=== PATIENT | female | born 1990 | race Caucasian/White ===

== ENCOUNTER 2016-12-18 11:44 | Observation (INO) | payer BC ==
--- NOTE | 2016-12-18 12:15 | ED ---
Chest Pain HPI - General Source: patient, EMS, RN notes reviewed Mode of arrival: EMS Limitations: no limitations <Yves Kaur - Last Filed: 12/18/16 14:45> <Juan Rodriguez - Last Filed: 12/18/16 15:02> - General Chief Complaint: Chest Pain Stated Complaint: SOB Time Seen by Provider: 12/18/16 11:47 - History of Present Illness Initial Comments: 26-year-old female presents emergency Department chief complaint chest pain. Patient states she was sitting at home which she has sudden onset of pain that radiates from her epigastric upper chest. Patient states it then felt like some stabbed a to her chest to her back. She states that she has some shortness breath even with talking this time. Patient states she has a history of exercise-induced asthma. Patient denies any fever, chills. She states she has some cold like symptoms no week or so ago but states she has not this time. Patient states she has no history of hyperlipidemia, hypertension, diabetes. She is a nonsmoker. No prior history of smoking. Denies any leg pain no history of DVT or PE. Patient denies any control. Patient was completely diaphoretic upon EMS arrived. (Yves Kaur) - Related Data Home Medications Medication Instructions Recorded Confirmed No Known Home Medications [No 12/18/16 12/18/16 Known Home Medications] Allergies Allergy/AdvReac Type Severity Reaction Status Date / Time aspirin Allergy Anaphylaxis Verified 12/18/16 12:57 Review of Systems ROS Other: All systems not noted in ROS Statement are negative. <Yves Kaur - Last Filed: 12/18/16 14:45> ROS Other: All systems not noted in ROS Statement are negative. <Juan Rodriguez - Last Filed: 12/18/16 15:02> ROS Statement: Those systems with pertinent positive or pertinent negative responses have been documented in the HPI. Past Medical History Past Medical History: Asthma Additional Past Medical History / Comment(s): RUQ pain History of Any Multi-Drug Resistant Organisms: None Reported Past Surgical History: Adenoidectomy, Tonsillectomy Past Anesthesia/Blood Transfusion Reactions: No Reported Reaction Past Psychological History: No Psychological Hx Reported Smoking Status: Never smoker Past Alcohol Use History: Occasional Past Drug Use History: None Reported <Yves Kaur - Last Filed: 12/18/16 14:45> General Exam Limitations: no limitations General appearance: alert, in no apparent distress Head exam: Present: atraumatic, normocephalic, normal inspection Neck exam: Present: normal inspection, full ROM. Absent: tenderness, meningismus, lymphadenopathy Respiratory exam: Present: normal lung sounds bilaterally. Absent: respiratory distress, wheezes, rales, rhonchi, stridor Cardiovascular Exam: Present: regular rate, normal rhythm, normal heart sounds. Absent: systolic murmur, diastolic murmur, rubs, gallop, clicks GI/Abdominal exam: Present: soft, tenderness (Mild left upper quadrant tenderness), normal bowel sounds. Absent: distended, guarding, rebound, rigid Back exam: Absent: CVA tenderness (R), CVA tenderness (L) Skin exam: Present: warm, dry, intact, normal color. Absent: rash <Yves Kaur - Last Filed: 12/18/16 14:45> Course <Yves Kaur - Last Filed: 12/18/16 14:45> <Juan Rodriguez - Last Filed: 12/18/16 15:02> Vital Signs 12/18/16 12/18/16 11:49 13:42 Temperature 97.4 F L 97.8 F Pulse Rate 74 83 Respiratory 18 18 Rate Blood Pressure 114/70 111/68 O2 Sat by Pulse 100 97 Oximetry - Reevaluation(s) Reevaluation #1: 12/18/16 15:01 Patient reexamined and resting comfortably in bed. Patient and family updated on results and plan. Patient case was discussed in detail with Dr. Macias, who will admit covering for Dr. Thomas. (Juan Rodriguez) Chest Pain [facility] <Yves Kaur - Last Filed: 12/18/16 14:45> <Juan Rodriguez - Last Filed: 12/18/16 15:02> - MDM 26-year-old female presented for chest pain. Patient's lab work was normal it' s. This may be more GI related though she had some concerning symptoms of near syncope, severe diaphoretic episode with chest pain. Patient will be Inpatient for cardiology evaluation. (Yves Kaur) Disposition <Yves Kaur - Last Filed: 12/18/16 14:45> <Juan Rodriguez - Last Filed: 12/18/16 15:02> Clinical Impression: Chest pain, Near syncope Disposition: ADMITTED IP TO THIS HOSP Condition: Stable Addendum entered and electronically signed by Yves Kaur PAC 12/18/16 14:47 : EKG performed at 12:13 normal sinus rhythm rate of 73, TN 150, cushion 100, QT/ QTC 394/434
[2016-12-18 12:39] LABS: Basophils # (A) 0.2 k/uL (0-0.2); Basophils % (A) 2 %; CH 30.9; CHCM 34.6; Eosinophils # (A) 0.3 k/uL (0-0.7); Eosinophils % (A) 4 %; HCT 39.2 % (34.0-46.0); HDW 2.42; HGB 12.7 gm/dL (11.4-16.0); Luc # (Auto) 0.06; Luc % (Auto) 1; Lymphocytes # (A) 0.8 k/uL (1.0-4.8); Lymphocytes % (A) 10 %; MCH 29.1 pg (25.0-35.0); MCHC 32.4 g/dL (31.0-37.0); MCV 89.6 fL (80.0-100.0); Mean Platelet Volume 7.2; Monocytes # (A) 0.3 k/uL (0-1.0); Monocytes % (A) 4 %; Neutrophils # (A) 6.1 k/uL (1.3-7.7); Neutrophils % (A) 79 %; RBC 4.38 m/uL (3.80-5.40); RDW 11.4 % (11.5-15.5); WBC 7.7 k/uL (3.8-10.6)
[2016-12-18 12:48] LABS: Anion Gap 10 mmol/L; Blood Urea Nitrogen 8 mg/dL (7-17); Calcium 8.6 mg/dL (8.4-10.2); Carbon Dioxide 26 mmol/L (22-30); Chloride 109 mmol/L (98-107); Glucose 76 mg/dL (74-99); Non-African American GFR(MDRD) >60 (>60 ml/min/1.73 sqM); Potassium 4.1 mmol/L (3.5-5.1); Sodium 145 mmol/L (137-145)
[2016-12-18 12:52] LABS: INR 1.1 (<1.1); Partial Thromboplastin Time 23.6 sec (22.0-30.0)
--- NOTE | 2016-12-18 12:57 | XR ---
EXAMINATION TYPE: XR chest 2V DATE OF EXAM: 12/18/2016 12:46 PM COMPARISON: NONE HISTORY: Chest pain TECHNIQUE: Frontal and lateral views of the chest are obtained. FINDINGS: Heart and mediastinum are normal. Lungs are clear. Diaphragm is normal. Bony thorax is int act. There are chest leads. IMPRESSION: Normal chest
[2016-12-18] MEDS ORDERED: ONDANSETRON 4 MG/2 ML VIAL IVP PRN (14:46)
[2016-12-18] MEDS ORDERED: NALOXONE 0.4 MG/ML 1 ML VIAL IV PRN (14:46)
[2016-12-18] MEDS ORDERED: ACETAMINOPHEN TAB 325 MG TAB PO PRN (14:46)
[2016-12-18] MEDS: IBUPROFEN 400 MG TAB PO PRN (14:59)
[2016-12-18] MEDS ORDERED: RX INFO: IV CONTRAST WAS GIVEN 1 EACH MISC MISCELLANE PRN (15:02)
--- NOTE | 2016-12-18 15:55 | CT ---
EXAMINATION TYPE: CT angio thoracic/abd aorta DATE OF EXAM: 12/18/2016 3:42 PM COMPARISON: NONE HISTORY: Mid Abdominal and Upper back pain CT DLP: 805.4 mGycm Automated exposure control for dose reduction was used. TECHNIQUE: Performed with IV Contrast, patient injected with 100 mL of Omnipaque 350. . Multiple axial sections were obtained from the thoracic inlet to the floor of the pelvis with intra venous contrast. There are 3-D post processed images. FINDINGS: The lungs are clear of infiltrate. There is no mediastinal adenopathy. There is no sign of aortic ane urysm or dissection. I see no filling defects in the pulmonary arteries. Liver spleen pancreas appear normal. Bile ducts are not dilated. There is no adrenal mass. Kidneys sh ow satisfactory contrast opacification. There is no retroperitoneal adenopathy. There is no ascites. The celiac artery and superior mesenteric artery appear normal. Iliac arteries are widely patent. The re is no evidence of stenosis. There is no evidence of an aneurysm. The renal arteries are widely pat ent. I see no intestinal wall thickening. There are no dilated loops. IMPRESSION: NEGATIVE CT ANGIOGRAM OF THE CHEST ABDOMEN AND PELVIS.
--- NOTE | 2016-12-18 17:47 | P.HPIM ---
History of Present Illness H&P Date: 12/18/16 26-year-old female with no significant past medical history comes in to the hospital via EMS as patient noted to have sudden onset abdominal pain left lower quadrant in location started radiating up to her chest. Patient stated the initial abdominal pain and lasted for 20 minutes the was severe sharp not associated with nausea vomiting or any diarrhea. Patient then noted to have diaphoresis and then pain that was radiated to the upper chest. That lasted for 10 more minutes. Patient apparently does have a history of asthma but has been well controlled and has not even required to use any rescue inhalers in the last few years. Patient states her last menstrual period was over 6 weeks ago. Denies having any severe pain during menstrual cycles. At the time of my examination. Patient states to be feeling better was walking around the unit without much difficulty. EKG did not reveal ST-T wave changes. Initial troponin was negative. A CT of the thorax was done to rule out dissection which was negative. Review of Systems All systems: negative (Noted in HPI) Past Medical History Past Medical History: Asthma Additional Past Medical History / Comment(s): RUQ pain History of Any Multi-Drug Resistant Organisms: None Reported Past Surgical History: Adenoidectomy, Cholecystectomy, Tonsillectomy Past Anesthesia/Blood Transfusion Reactions: No Reported Reaction Past Psychological History: No Psychological Hx Reported Smoking Status: Never smoker Past Alcohol Use History: Occasional Past Drug Use History: None Reported Medications and Allergies Home Medications Medication Instructions Recorded Confirmed Type No Known Home Medications [No 12/18/16 12/18/16 History Known Home Medications] Allergies Allergy/AdvReac Type Severity Reaction Status Date / Time aspirin Allergy Anaphylaxis Verified 12/18/16 12:57 Physical Exam Vitals: Vital Signs Temp Pulse Pulse Resp BP BP Pulse Ox 12/18/16 16:00 87 16 12/18/16 15:59 87 16 12/18/16 15:48 97.8 F 87 16 104/72 100 12/18/16 15:22 97.9 F 78 18 115/69 99 Intake and Output 12/18/16 12/18/16 12/18/16 06:59 14:59 22:59 Other: Voiding Method Toilet # Voids 1 Weight 65 kg Patient Weight 12/19/16 06:59 Weight 65 kg Physical exam Gen. appearance oriented 3 in no distress Neck is supple no JVD Lungs good air entry clear to auscultation no rhonchi or wheezing Heart S1-S2 heard regular rate and rhythm no murmurs appreciated Abdomen some tenderness to palpation of the left lower quadrant. Neurologically cranial nerves II-12 grossly intact no focal motor or sensory deficits noted Skin no abnormalities appreciated Results CBC & Chem 7: 12/18/16 12:18 12/18/16 12:18 Thrombosis Risk Factor Assmnt - Choose All That Apply Any of the Below Risk Factors Present?: No Other Risk Factors: No Other congenital or acquired thrombophilia - If yes, enter type in comment: No Thrombosis Risk Factor Assessment Level: Very Low Risk Assessment and Plan Plan: #1 atypical chest pain #2 presyncope appears to be slightly vasovagal in nature #3 abdominal pain nonspecific, wash question of underlying cyst rupture. #4 mild intermittent asthma Plan Continue ongoing care. Repeat another troponin. We'll have a cardiology eval. We'll obtain a ultrasound of the abdomen to rule out any ovarian cyst rupture. This could have initiated the pain which thereafter cause the vagal symptoms.
[2016-12-19] MEDS ORDERED: PANTOPRAZOLE 40 MG/10 ML VIAL IV SCH (09:00)
[2016-12-19 09:02] VITALS: RESP 16
--- NOTE | 2016-12-19 09:09 | US ---
EXAMINATION TYPE: US pelvic complete DATE OF EXAM: 12/19/2016 8:49 AM COMPARISON: NONE CLINICAL HISTORY: possible cysts. Pelvic pain yesterday that extended to chest and caused SOB, sympto ms gone today TECHNIQUE: TA Date of LMP: 11/21/2016 EXAM MEASUREMENTS: Uterus: 7.4 x 5.0 x 4.6cm Endometrial Stripe: 0.5cm Right Ovary: 4.0 x 2.7 x 2.1cm Left Ovary: 3.2 x 3.1 x 1.6cm TECHNOLOGIST IMPRESSION: 1. Uterus: Anteverted wnl 2. Endometrium: wnl 3. Right Ovary: wnl 4. Left Ovary: wnl 5. Bilateral Adnexa: wnl 6. Posterior cul-de-sac: wnl IMPRESSION: Unremarkable pelvic ultrasound.
[2016-12-19] MEDS: IBUPROFEN 400 MG TAB PO PRN (10:14)
--- NOTE | 2016-12-19 10:59 | CONS ---
DATE OF CONSULTATION: CHIEF COMPLAINT: Chest pain. 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 She underwent work-up including a CT chest of the thoracic aorta that was negative and also had a pelvic ultrasound. Pelvic ultrasound was unremarkable. Past medical history is negative for hypertension, diabetes, dyslipidemia. MEDICATIONS: None. ALLERGIES: ALLERGIC TO ASPIRIN. FAMILY HISTORY: Negative for premature coronary artery disease. SOCIAL HISTORY: Negative for smoking, ETOH abuse or drug abuse. REVIEW OF SYSTEMS: HEENT: Unremarkable. CARDIAC: As described above. RESPIRATORY: Negative. GI: Negative. GENITOURINARY: Negative. Allergy/immunology: Negative. MUSCULOSKELETAL: Significant for arthritis. PSYCHOSOCIAL: Negative. ENDOCRINE: Negative. Dermatology: Negative. CONSTITUTIONAL: Negative. The rest of the system review is not relevant. On exam, comfortable at rest. Vital signs are stable. There is no jugular venous distention. Carotid upstroke is normal. There is no bruit. Chest exam reveals good air entry bilaterally. Heart exam reveals first and second heart sounds. No gallop. ABDOMEN: Soft, nontender. Exam of extremities did not reveal edema. Peripheral pulses are felt. EKG does not reveal ischemic changes. Two sets of cardiac enzymes are negative. The CT scan is negative. Creatinine is 0.78. Hemoglobin is 12.7. ASSESSMENT: Chest pain, myocardial infarction ruled out. PLAN: Patient's symptoms are atypical and unclear etiology. Work-up so far has been negative and she is stable to be discharged home. I will obtain a 2-D echocardiogram on her and her work-up can be pursued as outpatient.
[2016-12-19 12:36] VITALS: BP 109/63; PULSE 81; TEMP 98.3
--- NOTE | 2016-12-19 13:30 | ECHOF ---
Referral Reason:heart function MEASUREMENTS -------- HEIGHT: 157.5 cm WEIGHT: 64.9 kg BP: 98/57 IVSd: 0.8 cm (0.6 - 1.1) LVIDd: 4.2 cm (3.9 - 5.3) LVPWd: 0.8 cm (0.6 - 1.1) LVIDs: 2.8 cm LA Diam: 3.0 cm (2.7 - 3.8) RVIDd: 2.9 cm (< 3.3) Ao Diam: 2.7 cm (2.0 - 3.7) AV Cusp: 2.1 cm (1.5 - 2.6) EPSS: 0.5 cm MV E Jason: 0.88 m/s MV DecT: 228 ms MV A Jason: 0.70 m/s MV E/A Ratio: 1.25 MV EF SLOPE: 74.82 mm/s (70 - 150) MV EXCURSION: 9.63 mm (> 18.000) FINDINGS -------- Sinus rhythm. This was a technically good study. The left ventricular size is normal. Left ventricular wall thickness is normal. Overall left ventricular systolic function is normal with, an EF between 60 - 65 %. The right ventricle is normal in size and function. The left atrium is normal in size. The right atrium is normal in size. The aortic valve is trileaflet and appears structurally normal. Normal appearing mitral valve. No mitral regurgitation. Trace tricuspid regurgitation present. Trace/mild (physiologic) pulmonic regurgitation. The aortic root size is normal. Normal inferior vena cava with normal inspiratory collapse consistent with estimated right atrial pressure of 5 mmHg. There is no pericardial effusion. CONCLUSIONS -------- 1. Sinus rhythm. 2. Normal appearing mitral valve. 3. Trace tricuspid regurgitation present. 4. Trace/mild (physiologic) pulmonic regurgitation. 5. The aortic root size is normal. 6. There is no pericardial effusion. 7. This was a technically good study. 8. The left ventricular size is normal. 9. Left ventricular wall thickness is normal. 10. Overall left ventricular systolic function is normal with, an EF between 60 - 65 %. 11. The right ventricle is normal in size and function. 12. The left atrium is normal in size. 13. The right atrium is normal in size. 14. The aortic valve is trileaflet and appears structurally normal. SEWER CONNECTOR: Brenda Lemon RDCS
--- NOTE | 2016-12-19 19:18 | P.DS ---
Providers Date of admission: 12/18/16 14:46 Attending physician: Inga Mix Primary care physician: Kalpesh Thomas [facility] Course: 26-year-old female with no significant past medical history comes in to the hospital via EMS as patient noted to have sudden onset abdominal pain left lower quadrant in location started radiating up to her chest. Patient stated the initial abdominal pain and lasted for 20 minutes the was severe sharp not associated with nausea vomiting or any diarrhea. Patient then noted to have diaphoresis and then pain that was radiated to the upper chest. That lasted for 10 more minutes. Patient apparently does have a history of asthma but has been well controlled and has not even required to use any rescue inhalers in the last few years. Patient states her last menstrual period was over 6 weeks ago. Denies having any severe pain during menstrual cycles. At the time of my examination. Patient states to be feeling better was walking around the unit without much difficulty. EKG did not reveal ST-T wave changes. Initial troponin was negative. A CT of the thorax was done to rule out dissection which was negative. Physical exam Gen. appearance oriented 3 in no distress Neck is supple no JVD Lungs good air entry clear to auscultation no rhonchi or wheezing Heart S1-S2 heard regular rate and rhythm no murmurs appreciated Abdomen some tenderness to palpation of the left lower quadrant. Neurologically cranial nerves II-12 grossly intact no focal motor or sensory deficits noted Skin no abnormalities appreciated R Plan: #1 atypical chest pain #2 presyncope appears to have vasovagal features due to abdominal pain. #3 abdominal pain nonspecific, #4 mild intermittent asthma ACS was ruled out Pelvic ultrasound negative Echo was done, results to be reviewed with Dr Lane on Follow up Symptom free Patient Condition at Discharge: Stable Plan - Discharge Summary Discharge Medication List No Known Home Medications [No Known Home Medications] 12/18/16 [History] Follow up Appointment(s)/Referral(s): Kalpesh Thomas DO [Primary Care Provider] - 1-[address] MD [STAFF PHYSICIAN] - 1 Week Patient Instructions/Handouts: Noncardiac Chest Pain (DC) Discharge Disposition: HOME SELF-CARE
== END 2016-12-19 14:22 | disposition home or self-care (01) ==
LOC: EC 11:44 → 3OBS 14:46
PROVIDERS: ADMIT Internal Medicine; ATTEND Internal Medicine
DX: R07.89 Other chest pain (principal); R55 Syncope and collapse; R61 Generalized hyperhidrosis; J45.20 Mild intermittent asthma, uncomplicated; R10.32 Left lower quadrant pain; R10.13 Epigastric pain; Z88.6 Allergy status to analgesic agent
CPT/HCPCS: 99285; 36415; 93005; 93306; 85379; 80048; 84484 ×2; 85025; 85610; 85730; 71020; 76856; 75635; 71275; G0378 ×2; Q9967; C9113

== ENCOUNTER → 2017-01-13 | Outpatient (CLI) | payer BC ==
--- NOTE | 2017-01-13 21:47 | MR ---
EXAMINATION TYPE: MR knee LT wo con DATE OF EXAM: 01/13/2017 5:29 PM COMPARISON: NONE HISTORY: Left knee pain TECHNIQUE: Multiplanar, multisequence imaging of the left knee is performed without IV contrast. FINDINGS: MEDIAL MENISCUS: Findings are compatible with a posterior horn medial meniscal tear LATERAL MENISCUS: Anterior and posterior horns are intact without tear. CRUCIATE LIGAMENTS: The anterior and posterior cruciate ligaments are intact and unremarkable. COLLATERAL LIGAMENTS: The medial collateral ligament and lateral collateral ligament complex are inta ct and unremarkable. EXTENSOR MECHANISM: Visualized quadriceps and patellar tendons are intact. EFFUSION: No significant suprapatellar joint effusion. POPLITEAL CYST: No popliteal/livingston cyst. TRICOMPARTMENT SPACES: Joint spaces are preserved. There is loss of the cartilage of the medial moore lar facet. Patellofemoral joint space is maintained. BONE MARROW SIGNAL: Nonspecific marrow changes are seen involving the proximal epiphysis of the tibia . Suggestion of a small intraosseous bone lesion with no corresponding plain film x-ray abnormality. Adjacent marrow edema is noted. Finding could be correlated with bone scan OTHER: No additional significant abnormality is appreciated. IMPRESSION: 1. 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 Findings are suspicious for subtle tear posterior horn medial meniscus 3. Intraosseous marrow edema and probable lesion. Outside x-ray submitted demonstrate no correspondin g defect. Finding likely benign but could be correlated with bone scan to assess activity.
== END | disposition home or self-care (01) ==
LOC: RADMRIMAIN 16:34
PROVIDERS: ATTEND Orthopaedic Surgery
DX: M22.42 Chondromalacia patellae, left knee (principal)

== ENCOUNTER 2025-04-15 10:11 | Outpatient (CLI) | payer BC ==
[2025-04-15] MEDS ORDERED: LACTATED RINGERS 1,000 ML IV SCH (10:45)
[2025-04-15 10:55] LABS: Glucose,Whole Blood 91 mg/dL (70-110)
[2025-04-15] MEDS: LACTATED RINGERS 1,000 ML IV ONE (10:55)
[2025-04-15 11:13] LABS: Basophils # (A) 0.03 10*3/uL (0.00-0.10); Basophils % (A) 0.3 %; Eosinophils # (A) 0.03 10*3/uL (0.04-0.35); Eosinophils % (A) 0.3 %; HCT 37.3 % (37.2-46.3); HGB 12.5 g/dL (12.0-15.0); Lymphocytes # (A) 0.97 10*3/uL (0.90-5.00); Lymphocytes % (A) 8.4 %; MCH 31.4 pg (27.0-32.0); MCHC 33.5 g/dL (32.0-37.0); MCV 93.7 fL (80.0-97.0); Mean Platelet Volume 9.4 fL (9.5-12.2); Monocytes # (A) 0.47 10*3/uL (0.20-1.00); Monocytes % (A) 4.1 %; Neutrophils % (A) 86.1 %; Platelet Count 227 10*3/uL (140-440); RBC 3.98 10*6/uL (4.10-5.20); RDW 12.1 % (11.5-14.5); WBC 11.49 10*3/uL (4.50-10.00)
[2025-04-15 11:28] LABS: ALT 19 U/L (4-34); AST 20 U/L (14-36); African American GFR (CKD) >90 (>60 ml/min/1.73 sqM); Alkaline Phosphatase 80 U/L (38-126); Anion Gap 10 mmol/L; Appearance,Urine Cloudy (Clear); Bacteria,Urine Rare /hpf; Bilirubin,Urine Negative (Negative); Blood Urea Nitrogen 11 mg/dL (7-17); Blood,Urine Negative (Negative); Calcium 9.1 mg/dL (8.4-10.2); Carbon Dioxide 19 mmol/L (22-30); Chloride 108 mmol/L (98-107); Color,Urine Yellow; Glucose 87 mg/dL (74-99); Glucose,Urine (UA) Negative (Negative); Ketones,Urine Negative (Negative); Leukocyte Esterase,Urine Large (Negative); Mucus,Urine Many /hpf; Nitrite,Urine Negative (Negative); Non-African American GFR(CKD) >90 (>60 ml/min/1.73 sqM); PH, Urine 5.5 (5.0-8.0); Protein,Urine 1+ (Negative); RBC,Urine 16 /hpf (0-5); Sodium 137 mmol/L (137-145); Specific Gravity,Urine 1.026 (1.001-1.035); Squamous Epithelial Cell,Urine 17 /hpf (0-4); Total Bilirubin 0.6 mg/dL (0.2-1.3); Total Protein 6.9 g/dL (6.3-8.2); Urobilinogen,Urine <2.0 mg/dL (<2.0); WBC,Urine 100 /hpf (0-5)
[2025-04-15 12:07] VITALS: BP 104/62; PULSE 66; RESP 16; TEMP 96.8
--- NOTE | 2025-04-23 20:39 | P.MSEPDOC ---
Presenting Problems - Arrival Data Date of Arrival on Unit: 04/15/25 Time of Arrival on Unit: 10:11 Mode of Transport: Ambulatory - Complaint OB-Reason for Admission/Chief Complaint: Dizziness, Syncope/Fainting Spell Medical History - Information : 2 Para: 1 Term: 1 : 0 Abortions: Spontaneous or Elective: 0 Number of Living Children: 1 - Gestational Age Gestational Age by SAMANTHA (wks/days): 25 Weeks and 5 Days Review of Systems - Review of Systems Constitutional: No problems Breast: No problems ENT: No problems Cardiovascular: No problems Respiratory: No problems Gastrointestinal: No problems Genitourinary: No problems Musculoskeletal: No problems Neurological: Fainting, Dizziness Skin: No problems Vital Signs - Temperature Temperature: 96.8 F Temperature Source: Temporal Artery Scan - Pulse Right Sitting Pulse Rate: 66 Pulse Assessment Method: Automatic Cuff - Respirations Respiratory Rate: 16 Oxygen Delivery Method: Room Air O2 Sat by Pulse Oximetry: 100 - Blood Pressure Right Arm Blood Pressure: 104/62 Blood Pressure Mean: 76 Blood Pressure Source: Automatic Cuff - Comment Vital Signs Comment: bp 72/37 during episode Medical Screen Scoring - Uterine Contractions Intensity: Mild Resting: Soft to palpation - Assessment - Baby A Baseline FHR: 135 Heart Rate - NICHD Category: Category I (Normal) Physician Notification - Physician Notified Physician Notified Date: 04/15/25 Physician Notified Time: 11:47 Physician: Lupe Wiggins New Order Received: Yes (d/c) Maternal Triage Index - Urgent/Priority 2 Urgent Priority 2: Yes Provider Notified: Lupe Wiggins Provider Notified Time: 10:37 Criteria Met for Priority 2: initial bp 105/62, 72/37 with dizzy episode, [id number] and 101/62 Disposition - Disposition OB Disposition: Discharge to home Discharge Date: 04/15/25 Discharge Time: 11:58 I agree with the RN Medical Screening Exam: Yes Case reviewed; plan agreed upon as documented in EMR&OBIX.: Yes Diagnosis: RELATED CONDITIONS, UNSPECIFIED, THIRD TRIMESTER
== END 2025-04-15 11:58 | disposition home or self-care (01) ==
LOC: FBPOP 10:11
PROVIDERS: ATTEND Obstetrics & Gynecology Obstetrics
DX: O26.893 Other specified pregnancy related conditions, third trimester (principal); Z88.6 Allergy status to analgesic agent; Z3A.25 25 weeks gestation of pregnancy
CPT/HCPCS: 36415; 80053; 81001; 85025; 96360; 99215